=== PATIENT | female | born 1990 | race Caucasian/White ===

== ENCOUNTER 2019-01-20 09:28 | Outpatient (REF) | payer MEDICAID, SELFPAY ==
[2019-01-20 19:54] LABS: Calculated LDL 54 mg/dL; Cholesterol 155 mg/dL (50-200); Glucose 156 mg/dL (70-100); HDL Cholesterol 26 mg/dL (40-60); TSH 3.07 uIU/mL (0.358-3.74); Triglyceride 375 mg/dL (30-150)
[2019-01-22 04:56] LABS: Vitamin D 25 Total 17.9 ng/ml (30-100)
== END 2019-01-20 09:48 ==
LOC: NCHCN 09:28
PROVIDERS: PCP Specialist/Technologist Athletic Trainer; Visit Provider Nurse Practitioner Family
DX: J45.20 Mild intermittent asthma, uncomplicated (principal); G47.9 Sleep disorder, unspecified; E66.01 Morbid (severe) obesity due to excess calories
CPT/HCPCS: 80061; 82306; 82947; 83721; 84443

== ENCOUNTER 2019-04-21 13:06 | Outpatient (CLI) | payer MEDICAID, SELFPAY ==
--- NOTE | 2019-04-21 13:20 | DI.RAD_ITS ---
EXAM: XR HIP LT COMPLETE AND AP PELVIS INDICATION: LT HIP JOINT PAIN, M25.552, FELL 2 MONTHS AGO, DAILY PAIN. COMPARISON: No exams were available for comparison TECHNIQUE: 2D digital imaging was performed. FINDINGS: No bone or joint abnormality is identified. Note is made of an intrauterine device in the pelvis. S oft tissues are unremarkable. IMPRESSION: No acute abnormality.
== END 2019-04-21 13:26 ==
PROVIDERS: PCP Specialist/Technologist Athletic Trainer; Visit Provider Nurse Practitioner Family
DX: M25.552 Pain in left hip (principal); Z91.81 History of falling; Z97.5 Presence of (intrauterine) contraceptive device
CPT/HCPCS: 73502

== ENCOUNTER 2019-04-28 01:34 | Outpatient (CLI) | payer MEDICAID, SELFPAY ==
--- NOTE | 2019-04-28 13:10 | DI.US_ITS ---
EXAM: US BREAST RT COMPLETE CLINICAL HISTORY: BREAST ABNORMAL FINDINGS, N64.59. TECHNIQUE: Ultrasound performed using standard protocol. COMPARISON: none FINDINGS: No cyst or mass is identified. There is no edema or visible skin thickening IMPRESSION: Negative right breast ultrasound.
== END 2019-04-28 01:54 ==
PROVIDERS: PCP Specialist/Technologist Athletic Trainer; Visit Provider Nurse Practitioner Family
DX: N64.59 Other signs and symptoms in breast (principal)
CPT/HCPCS: 76642

== ENCOUNTER 2019-07-27 09:13 | Outpatient (REF) | payer MEDICAID, SELFPAY ==
[2019-07-28 14:40] LABS: Hemoglobin A1C 8.1 % (3.8-5.6)
== END 2019-07-27 09:33 ==
LOC: NCHCN 09:13
PROVIDERS: PCP Specialist/Technologist Athletic Trainer; Visit Provider Nurse Practitioner Family
DX: R73.9 Hyperglycemia, unspecified (principal)
CPT/HCPCS: 83036

== ENCOUNTER 2019-08-05 12:58 | Outpatient (REF) | payer MEDICAID, SELFPAY ==
[2019-08-05 23:19] LABS: Anion Gap 12.7 mmol/L (3-11); BUN 11 mg/dL (7-18); CO2 25.3 mmol/L (21.0-32.0); CREATININE 0.67 mg/dL (0.55-1.02); Calcium 9.3 mg/dL (8.5-10.1); Chloride 101 mmol/L (98-107); Glucose 148 mg/dL (74-106); Potassium 4.1 mmol/L (3.5-5.1); Sodium 139 mmol/L (136-145)
== END 2019-08-05 13:18 ==
LOC: NCHCN 12:58
PROVIDERS: PCP Specialist/Technologist Athletic Trainer; Visit Provider Nurse Practitioner Family
DX: R73.9 Hyperglycemia, unspecified (principal)
CPT/HCPCS: 80048

== ENCOUNTER 2020-05-16 12:00 | Outpatient (REF) | payer MEDICAID, SELFPAY ==
[2020-05-16 19:29] LABS: Cholesterol 192 mg/dL (<200); HDL Cholesterol 22 mg/dL (40-60); Triglyceride 641 mg/dL (<150)
[2020-05-16 19:35] LABS: Hemoglobin A1C 5.5 % (<5.7)
[2020-05-16 19:40] LABS: LDL CHOLESTEROL 86 mg/dL (<100)
[2020-05-18 10:15] LABS: TSH (W/Ref FT4) 2.92 uIU/mL (0.36-3.74)
== END 2020-05-16 12:20 ==
LOC: NCHCN 12:00
PROVIDERS: PCP Nurse Practitioner Family; Visit Provider Nurse Practitioner Family
DX: E11.9 Type 2 diabetes mellitus without complications (principal); J45.991 Cough variant asthma; E78.1 Pure hyperglyceridemia; E66.01 Morbid (severe) obesity due to excess calories; F98.8 Other specified behavioral and emotional disorders with onset usually occurring in childhood and adolescence; E66.2 Morbid (severe) obesity with alveolar hypoventilation; F41.8 Other specified anxiety disorders
CPT/HCPCS: 80061; 83721; 83036; 84443

== ENCOUNTER 2020-09-07 10:49 | Outpatient (REF) | payer MEDICAID, SELFPAY ==
[2020-09-07 16:40] LABS: Hemoglobin A1C 5.9 % (<5.7)
[2020-09-07 16:57] LABS: ALT 39 U/L (14-59); AST 26 U/L (15-37); Calculated LDL 70 mg/dL (<100); Cholesterol 177 mg/dL (<200); HDL Cholesterol 30 mg/dL (40-60); Triglyceride 386 mg/dL (<150)
[2020-09-07 17:11] LABS: Creatine Kinase 49 U/L (26-192)
== END 2020-09-07 10:50 | disposition home or self-care (01) ==
LOC: NCHCN 10:49
PROVIDERS: PCP Nurse Practitioner Family; Visit Provider Nurse Practitioner Family
DX: E78.1 Pure hyperglyceridemia (principal); E11.9 Type 2 diabetes mellitus without complications
CPT/HCPCS: 80061; 82550; 83036; 84450; 84460

== ENCOUNTER 2020-12-13 14:58 | Outpatient (REF) | payer MEDICAID, SELFPAY ==
[2020-12-13 16:09] LABS: Anion Gap 12.9 mmol/L (3-11); BUN 5 mg/dL (7-18); CO2 24.1 mmol/L (21.0-32.0); CREATININE 0.8 mg/dL (0.55-1.02); Calcium 8.4 mg/dL (8.5-10.1); Chloride 105 mmol/L (98-107); Glucose 145 mg/dL (74-106); Hemoglobin A1C 6.4 % (<5.7); Potassium 3.6 mmol/L (3.5-5.1); Sodium 142 mmol/L (136-145)
[2020-12-15 04:35] LABS: Vitamin D 25 Total 12.3 ng/mL (30-100)
[2020-12-18 09:11] LABS: Methylphenidate 166 ng/mL; Ritalinic Acid 7786 ng/mL
== END 2020-12-13 14:59 | disposition home or self-care (01) ==
LOC: NCHCN 14:58
PROVIDERS: PCP Nurse Practitioner Family; Visit Provider Nurse Practitioner Family
DX: E11.9 Type 2 diabetes mellitus without complications (principal); F98.8 Other specified behavioral and emotional disorders with onset usually occurring in childhood and adolescence; E66.01 Morbid (severe) obesity due to excess calories; Z51.81 Encounter for therapeutic drug level monitoring; Z79.899 Other long term (current) drug therapy
CPT/HCPCS: 80048; 80360; 82306; 83036

== ENCOUNTER 2021-02-20 14:47 | Outpatient (REF) | payer MEDICAID, SELFPAY ==
[2021-02-20 17:21] LABS: Vitamin D 25 Total 33.9 ng/mL (30-100)
== END 2021-02-20 14:48 | disposition home or self-care (01) ==
LOC: NCHCN 14:47
PROVIDERS: PCP Nurse Practitioner Family; Visit Provider Nurse Practitioner Family
DX: E66.2 Morbid (severe) obesity with alveolar hypoventilation (principal); E66.01 Morbid (severe) obesity due to excess calories
CPT/HCPCS: 82306

== ENCOUNTER 2021-05-29 14:09 | Outpatient (REF) | payer MEDICAID, SELFPAY ==
--- NOTE | 2021-05-29 13:00 | PAPFT_PTH ---
PATIENT: Marilu West LOC: [facility]#:[id number] AGE/SX: 31/F ROOM: RE05/29/[address]: LILIA Pichardo : 1990 BED: DIS: 05/29/2021 SPEC #: [id number] RECD: 05/29/21 17:41 STATUS: YOKASTA REKristan #: [id number] JOSELIN: 05/29/21 13:[address]: Sully Barnes DEPT: [facility] Cytology RECD BY: Anel Curtis ENTERED: 05/29/21 17:42 SP TYPE: PAPFT OTHR DR: Antionette Trujillo Tissues: 1 - CX/ENDOCX FOR PAP SMEARS Procedures: PAP THIN PREP/[facility] Screening HPV DNA PROBE Comments:
[2021-05-31 15:48] LABS: Chlamydia Result Negative (Negative); GC Result Negative (Negative)
== END 2021-05-29 14:10 | disposition home or self-care (01) ==
LOC: NCHCN 14:09
PROVIDERS: PCP Nurse Practitioner Family; Visit Provider Nurse Practitioner Family
DX: Z11.3 Encounter for screening for infections with a predominantly sexual mode of transmission (principal); Z12.4 Encounter for screening for malignant neoplasm of cervix; Z11.51 Encounter for screening for human papillomavirus (HPV)
CPT/HCPCS: 87491; 87591; 88142; 87624

== ENCOUNTER 2021-06-21 20:53 | Outpatient (REF) | payer MEDICAID, SELFPAY ==
[2021-06-21 21:09] LABS: ESR 24 mm/hr (0-20)
[2021-06-21 21:18] LABS: ALT 86 U/L (14-59); AST 46 U/L (15-37); Albumin 3.6 g/dL (3.4-5.0); Alkaline Phosphatase 57 U/L (46-116); Anion Gap 11.3 mmol/L (3-11); BUN 8 mg/dL (7-18); Bilirubin, Total 0.5 mg/dL (0.2-1.0); C-Reactive Protein 2.17 mg/dL (0.0-0.3); CO2 24.7 mmol/L (21.0-32.0); CREATININE 0.7 mg/dL (0.55-1.02); Calcium 8.8 mg/dL (8.5-10.1); Chloride 103 mmol/L (98-107); Creatine Kinase 34 U/L (26-192); Glucose 147 mg/dL (74-106); Potassium 3.1 mmol/L (3.5-5.1); Sodium 139 mmol/L (136-145); Total Protein 6.9 g/dL (6.4-8.2)
[2021-06-21 21:21] LABS: Abs Immature Grans 0.11 10^3/uL (0.0-0.06); Absolute Eosinophil Count 0.17 10^3/uL (0.0-0.7); Absolute Lymphocyte Count 2.89 10^3/uL (1.2-3.4); Absolute Monocyte Count 1.02 10^3/uL (0.1-0.8); Absolute Neutrophil Count 10.13 10^3/uL (1.2-6.7); Basophils % 0.3; Eosinophils % 1.2; HCT 42.2 % (36.0-46.0); HGB 14.1 g/dL (11.2-15.7); Immature Grans % 0.8; Lymphocytes % 20.1; MCH 31.6 pg (27.0-33.0); MCHC 33.4 % (32.0-36.0); MCV 94.6 fL (80-95); MPV 9.7 fL (8.0-11.0); Monocytes % 7.1; Neutrophils % 70.5; Nucleated RBC 0 %; Platelet Count 310 10^3/uL (130-400); RBC 4.46 10^6/uL (3.93-5.22); RDW 13.1 % (11.7-14.6); RDW-SD 45.2 fL; WBC 14.37 10^3/uL (4.4-10.8)
[2021-06-21 21:22] LABS: Hemoglobin A1C 6.7 % (<5.7)
[2021-06-21 21:26] LABS: Absolute Basophil Count 0.04 10^3/uL (0.0-0.2)
[2021-06-22 17:52] LABS: Rheumatoid Factor <8.6 IU/mL (<12.0)
[2021-06-23 08:50] LABS: Cyclic Citrullinated Peptide <2.5 U/mL (<5.0)
[2021-06-23 11:14] LABS: Lyme Ab w Rflx to Lyme Confirm Negative (Negative)
[2021-06-23 11:53] LABS: COVID-19 RT-PCR UVMMC Result Negative (Negative)
[2021-06-23 14:19] LABS: ANA Interpretation Negative (Negative)
[2021-06-24 00:40] LABS: Anaplasma phagocytophilum Negative (Negative); B. miyamotoi PCR Negative (Negative); Babesia divergens/MO-1 Negative (Negative); Babesia duncani Negative (Negative); Babesia microti Negative (Negative); Ehrlichia chaffeensis Negative (Negative); Ehrlichia ewingii/canis Negative (Negative); Ehrlichia muris eauclairensis Negative (Negative)
== END 2021-06-21 20:54 | disposition home or self-care (01) ==
LOC: NCHCN 20:53
PROVIDERS: PCP Nurse Practitioner Family; Visit Provider Physician Assistant Medical
DX: M25.59 Pain in other specified joint (principal); Z20.822 Contact with and (suspected) exposure to COVID-19; J06.9 Acute upper respiratory infection, unspecified
CPT/HCPCS: 80053; 82550; 85652; 86200; 87798; U0003; 83036; 85025; 86038; 86140; 86431; 86618

== ENCOUNTER 2021-07-05 13:50 | Outpatient (REF) | payer MEDICAID, SELFPAY ==
[2021-07-05 21:06] LABS: ESR 15 mm/hr (0-20)
[2021-07-05 21:15] LABS: Iron 74 ug/dL (50-170); Total Iron Binding Capacity 300 ug/dL (250-450); Transferrin Sat 25 % (15-50)
[2021-07-05 21:39] LABS: Ferritin 286 ng/mL (8-252); TSH (W/Ref FT4) 1.72 uIU/mL (0.36-3.74)
[2021-07-05 21:47] LABS: C-Reactive Protein 0.97 mg/dL (0.0-0.3)
[2021-07-07 09:33] LABS: Hepatitis B Surface Ab Positive (See Note)
[2021-07-07 09:41] LABS: Transferrin 244 mg/dL (201-352)
[2021-07-07 10:04] LABS: Hepatitis B Surface Ag Negative (Negative)
[2021-07-07 10:28] LABS: Hepatitis C Ab w Rflx HCV PCR Negative (Negative)
== END 2021-07-05 13:51 | disposition home or self-care (01) ==
LOC: NCHCN 13:50
PROVIDERS: PCP Nurse Practitioner Family; Visit Provider Nurse Practitioner Family
DX: R79.89 Other specified abnormal findings of blood chemistry (principal)
CPT/HCPCS: 85652; 86706; 86803; 87340; 82728; 83540; 83550; 84443; 84466; 86140

== ENCOUNTER → 2022-05-22 02:14 | Outpatient (CLI) | payer MEDICAID, SELFPAY ==
--- NOTE | 2022-05-22 | DI.RAD_ITS ---
Exam(s) XR LUMBAR SPINE COMPLETE EXAM: XR LUMBAR SPINE COMPLETE CLINICAL HISTORY: CHRONIC LOW BACK PAIN, M54.59. TECHNIQUE: 2D digital imaging was performed. COMPARISON: No exams were available for comparison FINDINGS: Five views: Is no evidence of fracture or listhesis. No pars defects.. No significant disc space narrowing. Lexx ne density normal. No osseous lesions. No erosions. SI joints unremarkable. IMPRESSION: No significant findings. DATA REPOSITORY: RADIATION DOSE DELIVERED:
== END ==
PROVIDERS: PCP Nurse Practitioner Family; Visit Provider Nurse Practitioner Family
DX: M54.59 Other low back pain (principal)
CPT/HCPCS: 72110

== ENCOUNTER 2023-12-09 15:27 | Outpatient (REF) | payer MEDICAID, SELFPAY ==
[2023-12-09 19:28] LABS: Calculated LDL 89 mg/dL (<100); Cholesterol 180 mg/dL (<200); HDL Cholesterol 40 mg/dL (40-60); Triglyceride 257 mg/dL (<150)
== END 2023-12-09 15:28 | disposition home or self-care (01) ==
LOC: NCHCN 15:27
PROVIDERS: PCP Nurse Practitioner Family; Visit Provider Nurse Practitioner Family
DX: Z13.220 Encounter for screening for lipoid disorders (principal)
CPT/HCPCS: 80061

== ENCOUNTER 2024-09-23 16:10 | Outpatient (REF) | payer MEDICAID, SELFPAY ==
[2024-09-23 19:27] LABS: Abs Immature Grans 0.07 10^3/uL (0.0-0.06); Absolute Basophil Count 0.04 10^3/uL (0.0-0.2); Absolute Eosinophil Count 0.24 10^3/uL (0.0-0.7); Absolute Lymphocyte Count 2.93 10^3/uL (1.2-3.4); Absolute Monocyte Count 0.81 10^3/uL (0.1-0.8); Absolute Neutrophil Count 8.37 10^3/uL (1.2-6.7); Basophils % 0.3 %; Eosinophils % 1.9 %; HCT 44.5 % (36.0-46.0); HGB 14.6 g/dL (11.2-15.7); Immature Grans % 0.6 %; Lymphocytes % 23.5 %; MCH 32.3 pg (27.0-33.0); MCHC 32.8 % (32.0-36.0); MCV 99 fL (80-95); MPV 9.1 fL (8.0-11.0); Monocytes % 6.5 %; Neutrophils % 67.2 %; Platelet Count 318 10^3/uL (130-400); RBC 4.52 10^6/uL (3.93-5.22); RDW 13.2 % (11.7-14.6); RDW-SD 47.9 fL; WBC 12.46 10^3/uL (4.4-10.8)
[2024-09-23 19:41] LABS: Hemoglobin A1C 5.4 % (<5.7)
[2024-09-23 19:59] LABS: ALT 30 U/L (14-59); AST 17 U/L (15-37); Albumin 3.6 g/dL (3.4-5.0); Alkaline Phosphatase 66 U/L (46-116); Anion Gap 9.5 mmol/L (3-11); BUN 10 mg/dL (7-18); CO2 27.5 mmol/L (21.0-32.0); CREATININE 0.7 mg/dL (0.55-1.02); Chloride 107 mmol/L (98-107); Estimated GFR 116.31 (mL/min/1.73m2); Glucose 88 mg/dL (74-106); Sodium 144 mmol/L (136-145); Total Protein 7.5 g/dL (6.4-8.2); Vitamin D 25 Total 10.9 ng/mL (30-100)
== END 2024-09-23 16:11 | disposition home or self-care (01) ==
LOC: NCHCN 16:10
PROVIDERS: Visit Provider Physician Assistant Medical
DX: R73.03 Prediabetes (principal); E55.9 Vitamin D deficiency, unspecified; K76.0 Fatty (change of) liver, not elsewhere classified
CPT/HCPCS: 80053; 82306; 83036; 85025

== ENCOUNTER 2025-02-15 13:09 | Outpatient (REF) | payer MEDICAID, SELFPAY | END 2025-02-15 13:10 | disposition home or self-care (01) | LOC: NCHCN 13:09 | PROVIDERS: Visit Provider Physician Assistant Medical | DX: F90.0 Attention-deficit hyperactivity disorder, predominantly inattentive type (principal) | CPT/HCPCS: 80360 ==